=== PATIENT | female | born 1955 | race Caucasian/White ===

== ENCOUNTER 2016-12-28 09:05 | Day surgery (SDC) | payer OTHER ==
[2016-12-28] MEDS ORDERED: diphenhydrAMINE 25 MG CAP PO ONE ×2 (09:18→09:58)
[2016-12-28] MEDS ORDERED: NS 1,000 ML IV ONE (09:18)
[2016-12-28] MEDS ORDERED: FAMOTIDINE 20 MG TAB PO ONE (09:18)
[2016-12-28] MEDS ORDERED: DIAZEPAM 5 MG TAB PO ONE (09:18)
[2016-12-28] MEDS ORDERED: ASPIRIN EC 325 MG TAB PO ONE ×2 (09:18→09:58)
--- NOTE | 2016-12-28 09:48 | CPEKG ---
Heart Rate: 61 RR Interval: 984 P-R Interval: 156 QRSD Interval: 82 QT Interval: 428 QTC Interval: 431 P [place]: 68 QRS [place]: 51 T Wave [place]: 33 EKG Severity - OTHERWISE NORMAL ECG - EKG Impression: SINUS RHYTHM EKG Impression: possible left atrial abnormality Electronically Signed By: Yo Harris 28-Dec-2016 18:08:10
[2016-12-28] MEDS ORDERED: FAMOTIDINE 20 MG TAB ONE (09:58)
[2016-12-28] MEDS ORDERED: DIAZEPAM 5 MG TAB ONE (09:59)
[2016-12-28 10:11] LABS: % IMMATURE GRANULYOCYTES 0.2 % (0.0-1.1); ABSOLUTE IMMATURE GRANULOCYTES 0.01 10^3/uL (0.00-0.10); ADD DIFF? NO; ADD MORPH? NO; ADD SCAN? NO; ATYPICAL LYMPHOCYTE FLAG 40 (0-99); FRAGMENT RBC FLAG 0 (0-99); HEMATOCRIT 43.3 % (38.0-47.0); HEMOGLOBIN 14.7 g/dL (12.6-16.3); LEFT SHIFT FLG 0 (0-99); LIPEMIA HEMOLYSIS FLAG 90 (0-99); MEAN CELL HEMOGLOBIN 31.8 pg (27.9-34.1); MEAN CELL HEMOGLOBIN CONCENTR. 33.9 g/dL (32.4-36.7); MEAN CELL VOLUME 93.7 fL (81.5-99.8); MEAN PLATELET VOLUME 9.4 fL (8.7-11.7); PLATELET CLUMPS FLAG 0 (0-99); PLATELET COUNT 278 10^3/uL (150-400); RED BLOOD CELL COUNT 4.62 10^6/uL (4.18-5.33); RED CELL DISTRIBUTION WIDTH 12.9 % (11.5-15.2)
[2016-12-28 10:22] LABS: PROTIME(PATIENT) 13.1 SEC (12.0-15.0)
[2016-12-28 10:44] LABS: ANION GAP 13 mEq/L (8-16); CALCIUM 10.2 mg/dL (8.5-10.4); CARBON DIOXIDE 25 mEq/l (22-31); CHLORIDE 105 mEq/L (97-110); CHOLESTEROL 172 mg/dL (140-220); CHOLESTEROL/HDL RATIO 1.95 RATIO (1.00-4.44); CREATININE 0.7 mg/dL (0.6-1.0); GLOMERULAR FILTRATION RATE > 60; GLUCOSE 89 mg/dL (70-100); HIGH DENSITY LIPOPROTEIN 88 mg/dL (40-85); LDL/HDL RATIO 0.82 RATIO (1.00-3.22); LOW DENSITY LIPOPROTEIN 72 mg/dL (80-100); NON-HIGH DENSITY LIPOPROTEIN 84 mg/dL (90-129); POTASSIUM 4.6 mEq/L (3.5-5.2); SODIUM 143 mEq/L (134-144); TRIGLYCERIDE 61 mg/dL (35-135); VERY LOW DENSITY LIPOPROTEINS 12 mg/dL (8-25)
[2016-12-28] MEDS ORDERED: LIDOCAINE 1% 30 ML SDV ONE (10:59)
[2016-12-28] MEDS ORDERED: fentaNYL 100 MCG/2 ML INJ ONE (11:00)
[2016-12-28] MEDS ORDERED: VERAPAMIL 5 MG/2 ML VIAL ONE (11:00)
[2016-12-28] MEDS ORDERED: MIDAZOLAM 2 MG/2 ML VIAL ONE (11:00)
[2016-12-28] MEDS ORDERED: HEPARIN 10,000 UNIT/10 ML MDV ONE (11:00)
[2016-12-28] MEDS ORDERED: NITROGLYCERIN 1,500 MCG/15 ML VIAL MISC ONE (11:36)
[2016-12-28] MEDS ORDERED: IOPAMIDOL (ISOVUE 370) 100 ML BTL IV ONE (12:14)
--- NOTE | 2016-12-28 12:47 | CPIP ---
[f rep st] INVASIVE CARDIAC PROCEDURE DATE OF PROCEDURE: 12/28/2016 PROCEDURE: 1. Left heart catheterization. 2. Coronary angiography. 3. Left ventriculography. INDICATIONS: Chest pain in a patient with known coronary disease and intermediate risk stress test. COMPLICATIONS: None. DESCRIPTION OF PROCEDURE: N.p.o. status was confirmed, informed consent obtained, and time-out perf ormed. Adequate conscious sedation was achieved with Versed and fentanyl IV. One percent lidocaine was used for local anesthesia of the left radial artery region. Using modified Seldinger technique , a 5-M[place] introducer sheath was placed in the left radial artery. JR 4 and JL 3.5 catheters were used to image the coronary arteries. Pigtail catheter was used for left ventriculography. FINDINGS: 1. The right coronary artery is dominant. There is no significant coronary disease. 2. The left main is normal and bifurcates to the LAD and left circumflex. The LAD reaches the apex and does wrap around. There are 2 medium-sized diagonal vessels. In the mid LAD there is plaquing with approximately 30% stenosis. SRAVAN-3 flow throughout the vessel. 3. The left circumflex has 2 principal obtuse marginals. There is no significant disease. LEFT VENTRICULOGRAPHY: The left ventricle ejection fraction is 65% with normal wall motion. There is mild mitral regurgitation. HEMODYNAMICS: LV pressure is 85/6 with an end-diastolic pressure of 15. Aortic pressure is 93/49 w ith a mean of 68. There is no aortic stenosis. 1. Non flow limiting mid LAD disease of approximately 30%. 2. Normal left ventricular ejection fraction and left heart filling pressures. 3. Visualized portions of the aorta appear normal. 4. Continue aggressive risk factor modification for the patient's history of coronary plaque. 5. Patient's left radial arteriotomy site was sealed with a TR band. She was seen in CVC in stable condition. Results discussed with patient's . /[id number]/MODL
== END 2016-12-28 16:00 | disposition home or self-care (01) ==
LOC: FCATH 09:05
PROVIDERS: ATTEND Internal Medicine Cardiovascular Disease
PROC: 4A023N7 Measurement of Cardiac Sampling and Pressure, Left Heart, Percutaneous Approach (ICD-10-PCS; principal; 2016-12-28)
PROC: B2111ZZ Fluoroscopy of Multiple Coronary Arteries using Low Osmolar Contrast (ICD-10-PCS; principal; 2016-12-28)
PROC: B2151ZZ Fluoroscopy of Left Heart using Low Osmolar Contrast (ICD-10-PCS; principal; 2016-12-28)
DX: I25.119 Atherosclerotic heart disease of native coronary artery with unspecified angina pectoris (principal); R94.39 Abnormal result of other cardiovascular function study; E78.5 Hyperlipidemia, unspecified; G47.30 Sleep apnea, unspecified; Z82.49 Family history of ischemic heart disease and other diseases of the circulatory system; Z87.891 Personal history of nicotine dependence
CPT/HCPCS: J1644; J2250; J3010; Q9967

== ENCOUNTER → 2017-04-12 | Outpatient (CLI) | payer OTHER | LOC: FIMAGING 15:30 | PROVIDERS: ATTEND Internal Medicine | DX: Z12.31 Encounter for screening mammogram for malignant neoplasm of breast (principal) | CPT/HCPCS: G0202 ==

== ENCOUNTER → 2017-09-17 | Outpatient (CLI) | payer OTHER | LOC: FIMAGING 07:51 | DX: M25.551 Pain in right hip (principal); M25.552 Pain in left hip; S83.281A Other tear of lateral meniscus, current injury, right knee, initial encounter; M43.16 Spondylolisthesis, lumbar region; M99.73 Connective tissue and disc stenosis of intervertebral foramina of lumbar region; N28.1 Cyst of kidney, acquired ==

== ENCOUNTER → 2018-03-15 | Outpatient (CLI) | payer OTHER | LOC: BMCIMAGING 15:12 | PROVIDERS: ATTEND Internal Medicine Endocrinology, Diabetes & Metabolism | DX: Z13.820 Encounter for screening for osteoporosis (principal); M81.0 Age-related osteoporosis without current pathological fracture; Z78.0 Asymptomatic menopausal state ==

== ENCOUNTER → 2018-04-14 | Outpatient (CLI) | payer OTHER | LOC: BMCIMAGING 13:39 | PROVIDERS: ATTEND Internal Medicine | DX: Z12.31 Encounter for screening mammogram for malignant neoplasm of breast (principal) ==